=== PATIENT | female | born 1980 | race Asian ===

== ENCOUNTER 2018-03-11 23:21 | Inpatient (IN) | payer OTHER ==
[~2018-03-11] VITALS: Ht 162.6 cm; Wt 88.0 kg
[2018-03-11] MEDS ORDERED: OXYTOCIN 30U/ 0.9% NaCL 500ML 500 ML IV ONE (23:40)
[2018-03-11] MEDS: D5%-LACTATED RINGERS 1,000 ML IV SCH (23:40)
[2018-03-11] MEDS ORDERED: LABETALOL 5MG/ML, 20ML ONE (23:50)
[2018-03-12] MEDS ORDERED: LABETALOL 5MG/ML, 20ML IVPush ONE ×3
[2018-03-12] MEDS ORDERED: ONDANSETRON 2MG/ML, 2ML IVPush PRN
[2018-03-12] MEDS ORDERED: FENTANYL PF 100 MCG/2ML IVPush PRN
[2018-03-12] MEDS ORDERED: METOCLOPRAMIDE 5 MG/ML, 2ML IVPush PRN
[2018-03-12] MEDS ORDERED: FENTANYL PF 100 MCG/2ML IV PRN
[2018-03-12] MEDS ORDERED: hydrALAzine 20 MG/ML, 1ML IVPush ONE
[2018-03-12] MEDS ORDERED: SODIUM CITRATE/CITRIC ACID 30 ML UDC PO PRN
[2018-03-12 00:06] LABS: BASOPHILS # (AUTO) 0.03 x10^3/uL (0-0.1); BASOPHILS % (AUTO) 0 % (0-1); EOSINOPHILS # (AUTO) 0.02 x10^3/uL (0-0.4); EOSINOPHILS % (AUTO) 0 % (1-7); LYMPHOCYTES # (AUTO) 1.85 x10^3/uL (1-3.4); LYMPHOCYTES % (AUTO) 26 % (22-44); MD NO; MEAN CORPUSCULAR HEMOGLOBIN 31.8 pg (27.0-34.8); MEAN CORPUSCULAR HGB CONC 34.2 g/dL (32.4-35.8); MEAN PLATELET VOLUME 7.7 fL (7.4-10.4); MONOCYTES # (AUTO) 0.48 x10^3/uL (0.2-0.8); MONOCYTES % (AUTO) 7 % (2-9); NEUTROPHILS # (AUTO) 4.73 x10^3/uL (1.8-6.8); NEUTROPHILS % (AUTO) 67 % (42-75); PLATELET COUNT 283 x10^3/uL (130-400); RED BLOOD COUNT 4.46 x10^6/uL (3.82-5.3); RED CELL DISTRIBUTION WIDTH 15.1 % (9.6-15.2)
[2018-03-12] MEDS: LACTATED RINGERS 1,000 ML IV SCH ×4 (00:10→23:40)
[2018-03-12 00:12] VITALS: BP 161/94
[2018-03-12 00:19] LABS: ALANINE AMINOTRANSFERASE 22 U/L (12-78); ALBUMIN 2.3 g/dL (3.4-5.0); ANION GAP 10 mmol/L (5-15); BILIRUBIN, DIRECT 0.1 mg/dL (0.1-0.2); CALCIUM 8.3 mg/dL (8.5-10.1); CHLORIDE 110 mmol/L (98-107); CREATININE 0.61 mg/dL (0.55-1.02)
[2018-03-12 00:20] LABS: ALKALINE PHOSPHATASE 121 U/L (45-117); BILIRUBIN,TOTAL 0.2 mg/dL (0.2-1.0); TOTAL PROTEIN 6.4 g/dL (6.4-8.2)
[2018-03-12] MEDS ORDERED: FENTANYL/BUPIV./NS/PF 250 ML EPIDCONT SCH (00:27)
[2018-03-12] MEDS ORDERED: MAGNESIUM SULF. PMX 20GM/500ML 500 ML IV ONE ×2 (00:54→08:40)
[2018-03-12] MEDS ORDERED: LABETALOL 200 MG TABLET ONE (00:54)
[2018-03-12] MEDS ORDERED: FENTANYL PF 500 MCG, BUPIVACAINE/PF 0.5%, 30ML 62.5 ML in SODIUM CHLORIDE 0.9% 177.5 ML EPIDCONT SCH (01:00)
[2018-03-12] MEDS ORDERED: LABETALOL 200 MG TABLET PO ONE (01:00)
[2018-03-12] MEDS: MAGNESIUM SULF. PMX 20GM/500ML 500 ML IV SCH ×2 (01:10→18:12)
[2018-03-12] MEDS ORDERED: BUPIVACAINE 0.25% ONE (01:13)
[2018-03-12 01:23] LABS: MICROSCOPIC INDICATED
[2018-03-12] MEDS ORDERED: MAGNESIUM SULFATE PMX 4GM/100M 100 ML IVPB ONE (01:30)
[2018-03-12] MEDS ORDERED: LIDOCAINE/PF 1%, 30ML ONE (05:16)
[2018-03-12] MEDS ORDERED: MISOPROSTOL 200 MCG TABLET ONE (05:17)
[2018-03-12] MEDS ORDERED: OXYTOCIN 30U/ 0.9% NaCL 500ML 500 ML ONE ×2 (05:17→08:36)
[2018-03-12 06:26] LABS: BASOPHILS # (AUTO) 0.04 x10^3/uL (0-0.1); BASOPHILS % (AUTO) 0 % (0-1); EOSINOPHILS # (AUTO) 0.01 x10^3/uL (0-0.4); EOSINOPHILS % (AUTO) 0 % (1-7); LYMPHOCYTES # (AUTO) 1.65 x10^3/uL (1-3.4); LYMPHOCYTES % (AUTO) 12 % (22-44); MD NO; MEAN CORPUSCULAR HGB CONC 34.4 g/dL (32.4-35.8); MEAN CORPUSCULAR VOLUME 93.1 fL (80-100); MEAN PLATELET VOLUME 7.7 fL (7.4-10.4); MONOCYTES # (AUTO) 0.58 x10^3/uL (0.2-0.8); MONOCYTES % (AUTO) 4 % (2-9); NEUTROPHILS # (AUTO) 11.98 x10^3/uL (1.8-6.8); NEUTROPHILS % (AUTO) 84 % (42-75); PLATELET COUNT 258 x10^3/uL (130-400); RED BLOOD COUNT 4.35 x10^6/uL (3.82-5.3)
[2018-03-12 06:36] LABS: ALBUMIN 2.3 g/dL (3.4-5.0); ANION GAP 10 mmol/L (5-15); BILIRUBIN, DIRECT 0.1 mg/dL (0.1-0.2); CALCIUM 7.9 mg/dL (8.5-10.1); CHLORIDE 110 mmol/L (98-107)
[2018-03-12 06:39] LABS: ALANINE AMINOTRANSFERASE 19 U/L (12-78); ALKALINE PHOSPHATASE 117 U/L (45-117); BILIRUBIN,TOTAL 0.2 mg/dL (0.2-1.0); CREATININE 0.57 mg/dL (0.55-1.02); TOTAL PROTEIN 6.2 g/dL (6.4-8.2)
[2018-03-12] MEDS ORDERED: NEWBORN KIT ONE (07:17)
[2018-03-12] MEDS: D5%-LACTATED RINGERS 1,000 ML IV SCH ×3 (07:40→23:40)
[2018-03-12] MEDS ORDERED: BISACODYL 10 MG SUPP PR PRN (08:00)
[2018-03-12] MEDS ORDERED: GLYCERIN ADULT SUPP PR PRN (08:00)
[2018-03-12] MEDS ORDERED: MAGNESIUM HYDROXIDE 8%, 30ML UDC PO PRN (08:00)
[2018-03-12] MEDS ORDERED: DOCUSATE 100 MG CAPSULE PO PRN (08:00)
[2018-03-12] MEDS ORDERED: DIPH,PERTUSS(ACELL),TET VAC/PF NC IM-VACC PRN (08:00)
[2018-03-12] MEDS ORDERED: ACETAMINOPHEN 325 MG TABLET PO PRN ×2 (08:00)
[2018-03-12] MEDS ORDERED: CARBOPROST TROMETHAMINE 250 MCG/ML, 1ML IM PRN (08:00)
[2018-03-12] MEDS ORDERED: IBUPROFEN 600 MG TABLET ONE ×2 (08:00→19:56)
[2018-03-12] MEDS ORDERED: CALCIUM CARBONATE 500 MG TAB.CHEW PO PRN ×2 (08:00)
[2018-03-12] MEDS ORDERED: OXYcodone/APAP 5/325MG TABLET PO PRN (08:00)
[2018-03-12] MEDS ORDERED: MISOPROSTOL 200 MCG TABLET PR PRN (08:00)
[2018-03-12] MEDS: IBUPROFEN 600 MG TABLET PO PRN ×3 (08:01→19:58)
[2018-03-12] MEDS: OXYTOCIN 30U/ 0.9% NaCL 500ML 500 ML IV SCH ×2 (08:42→17:43)
[2018-03-12 18:02] LABS: BASOPHILS # (AUTO) 0.09 x10^3/uL (0-0.1); BASOPHILS % (AUTO) 1 % (0-1); EOSINOPHILS # (AUTO) 0.02 x10^3/uL (0-0.4); EOSINOPHILS % (AUTO) 0 % (1-7); LYMPHOCYTES # (AUTO) 1.58 x10^3/uL (1-3.4); LYMPHOCYTES % (AUTO) 11 % (22-44); MD NO; MEAN CORPUSCULAR HEMOGLOBIN 31.5 pg (27.0-34.8); MEAN CORPUSCULAR HGB CONC 33.8 g/dL (32.4-35.8); MEAN CORPUSCULAR VOLUME 93.2 fL (80-100); MEAN PLATELET VOLUME 7.4 fL (7.4-10.4); MONOCYTES # (AUTO) 0.59 x10^3/uL (0.2-0.8); MONOCYTES % (AUTO) 4 % (2-9); NEUTROPHILS # (AUTO) 12.05 x10^3/uL (1.8-6.8); NEUTROPHILS % (AUTO) 84 % (42-75); PLATELET COUNT 258 x10^3/uL (130-400); RED BLOOD COUNT 4.21 x10^6/uL (3.82-5.3); RED CELL DISTRIBUTION WIDTH 14.8 % (9.6-15.2)
[2018-03-12] MEDS: OXYcodone/APAP 5/325MG TABLET PO PRN (18:13)
[2018-03-12] MEDS ORDERED: MEASLES,MUMPS&RUBELLA VACC/PF 0.5 ML SQ-VACC ONE (19:00)
[2018-03-12 23:30] VITALS: BP 141/79
[2018-03-13] MEDS: OXYTOCIN 30U/ 0.9% NaCL 500ML 500 ML IV SCH ×2 (03:43→13:43)
[2018-03-13] MEDS: MAGNESIUM SULF. PMX 20GM/500ML 500 ML IV SCH ×2 (04:05→07:10)
[2018-03-13] MEDS: D5%-LACTATED RINGERS 1,000 ML IV SCH ×2 (07:40→15:40)
[2018-03-13] MEDS: LACTATED RINGERS 1,000 ML IV SCH ×2 (07:40→15:40)
[2018-03-13 08:00] VITALS: BP 161/91
[2018-03-13] MEDS ORDERED: IBUPROFEN 600 MG TABLET ONE (08:10)
[2018-03-13] MEDS: IBUPROFEN 600 MG TABLET PO PRN (08:13)
[2018-03-13 08:15] VITALS: BP 152/78
[2018-03-13 09:00] VITALS: BP 155/90
[2018-03-13] MEDS: PRENATAL VIT/IRON/FA 1 EACH TABLET PO SCH ×2 (09:00→10:14)
[2018-03-13 09:35] VITALS: BP 145/90
[2018-03-13] MEDS ORDERED: niFEDipine ER 30 MG TABLET.ER ONE (09:52)
[2018-03-13] MEDS ORDERED: niFEDipine ER 30 MG TABLET.ER PO SCH (10:00)
[2018-03-13 13:30] VITALS: BP 133/81
[2018-03-13] MEDS: OXYcodone/APAP 5/325MG TABLET PO PRN (13:35)
[2018-03-13 16:15] VITALS: BP 138/88
[2018-03-13] MEDS ORDERED: NIFE30TA2 PO (18:31)
[2018-03-13] MEDS ORDERED: MEASLES,MUMPS&RUBELLA VACC/PF 0.5 ML SQ-VACC ONE ×2 (18:52→19:11)
== END 2018-03-13 20:04 | disposition home or self-care (01) | DRG 807 ==
LOC: LDOP 23:21 → LDIP 23:43 → 2NE 03-12 10:48 → 2NW 03-13 10:20
PROVIDERS: ADMIT Obstetrics & Gynecology; ATTEND Obstetrics & Gynecology
PROC: 10E0XZZ Delivery of Products of Conception, External Approach (ICD-10-PCS; principal; 2018-03-12)
PROC: 0KQM0ZZ Repair Perineum Muscle, Open Approach (ICD-10-PCS; 2018-03-12)
PROC: 3E0R3BZ Introduction of Anesthetic Agent into Spinal Canal, Percutaneous Approach (ICD-10-PCS; 2018-03-12)
PROC: 00HU33Z Insertion of Infusion Device into Spinal Canal, Percutaneous Approach (ICD-10-PCS; 2018-03-12)
DX: O14.14 Severe pre-eclampsia complicating childbirth (principal); Z37.0 Single live birth; O70.1 Second degree perineal laceration during delivery; Z3A.40 40 weeks gestation of pregnancy
CPT/HCPCS: 36415; 80053; 81001; 82248; 82570; 82803; 83735; 84156; 84550; 85025; 86850; 86900; 90715; 99285; G0378; J2590; J3010; J3475; J7120